=== PATIENT | female | born 1960 | race African-American/Black ===

== ENCOUNTER 2019-06-18 02:45 | Emergency (ER) | payer SELFPAY ==
[2019-06-18 02:55] VITALS: BP 160/80
[2019-06-18] MEDS ORDERED: NAPROXEN 250 MG TABLET PO ONE (06:33)
--- NOTE | 2019-06-18 06:48 | ER Document Report ---
ED General - General Chief Complaint: Low Back Pain Stated Complaint: LOWER BACK PAIN Time Seen by Provider: 06/18/19 06:21 Primary Care Provider: GERRI GUADALUPE MD [Primary Care Provider] - Follow up as needed TRAVEL OUTSIDE OF THE [place] IN LAST 30 DAYS: No - HPI Notes: Patient is a 58-year-old female that presents to the emergency department for chief complaint of low back pain. Patient reports pain in her low back for the last 5 days. She states it is a tight aching sensation. With certain movements the pain radiates down both of her legs and the back. She states the pain is worse with movement and relieved some with rest and heating. She has taken Tylenol, her last dose was at 2 AM. Patient denies any saddle anesthesia, bowel or bladder incontinence, lower extre mity numbness or weakness. She does have a history of back injury 4 years ago which required physical therapy and states intermittently she does get low back pain but this is more severe than usual. She denies any new injury to her back. Past Medical History: Negative Past Surgical History: Negative Social History: Denies drugs alcohol and tobacco Family History: Reviewed and noncontributory for presenting illness Allergies: Reviewed, see documented allergy list. REVIEW OF SYSTEMS: CONSTITUTIONAL : No fever No chills No diaphoresis No recent illness EENT: No vision changes No congestion No sore throat CARDIOVASCULAR: No chest pain No palpitations RESPIRATORY: No shortness of breath No cough No difficulty breathing GASTROINTESTINAL: No abdominal pain No nausea No vomiting No diarrhea GENITOURINARY: No dysuria No hematuria No difficulty urinating MUSCULOSKELETAL: back pain No leg pain No arm pain SKIN: No rashes No lesions LYMPHATIC: No swollen, enlarged glands. NEUROLOGICAL: No lightheadedness No headache No weakness No paresthesias PSYCHIATRIC: No anxiety No depression PHYSICAL EXAMINATION: Vital signs reviewed, nursing noted reviewed. GENERAL: Well-appearing, well-nourished and in no acute distress. HEAD: Atraumatic, normocephalic. EYES: Eyes appear normal, extraocular movements intact, sclera anicteric, conjun ctiva are normal. ENT: nares patent, oropharynx clear without exudates. Moist mucous membranes. NECK: Normal range of motion, supple without lymphadenopathy LUNGS: Breath sounds clear to auscultation bilaterally and equal. No wheezes rales or rhonchi. HEART: Regular rate and rhythm without murmurs ABDOMEN: Soft, nontender, normoactive bowel sounds. No rebound, guarding, or rigidity. No masses appreciated. EXTREMITIES: Nontender, good range of motion, no pitting or edema. Back: No midline thoracic or lumbar tenderness, bilateral lumbar paraspinal muscle tenderness and spasm, normal range of motion of the thoracic and lumbar spine. Negative straight leg raise test NEUROLOGICAL: No focal neurological deficits. Moves all extremities spontaneously Motor and sensory grossly intact on exam. PSYCH: Normal mood, normal affect. SKIN: Warm, Dry, normal turgor, no rashes or lesions noted on exposed skin - Related Data Allergies/Adverse Reactions: No Known Allergies Allergy (Unverified 02/24/12 11:27) Past Medical History - Social History Smoking Status: Never Smoker Frequency of alcohol use: None Family History: Reviewed & Not Pertinent Patient has suicidal ideation: No Patient has homicidal ideation: No - Past Medical History Cardiac Medical History: Denies: Hx Heart Attack, Hx Hypertension Pulmonary Medical History: Denies: Hx Asthma Neurological Medical History: Denies: Hx Cerebrovascular Accident, Hx Seizures Renal/ Medical History: Denies: Hx Peritoneal Dialysis GI Medical History: Denies: Hx Hepatitis, Hx Hiatal Hernia, Hx Ulcer Infectious Medical History: Denies: Hx Hepatitis Past Surgical History: Denies: Hx Hysterectomy, Hx Mastectomy, Hx Open Heart Surgery, Hx Pacemaker Physical Exam - Vital signs Vitals: Temp Pulse Resp BP Pulse Ox 97.5 F 58 L 18 160/80 H 98 06/18/19 02:53 06/18/19 02:53 06/18/19 02:53 06/18/19 02:53 06/18/19 02:53 Course - Re-evaluation Re-evalutation: 06/18/19 06:43 Vitals reviewed. Nursing notes reviewed. Patient did drive herself to the emergency room and will be driving home therefore no medications that could alter her ability to drive will be given. Patient was treated with naproxen for her pain. She has no fever, midline tenderness, saddle anesthesia or lower extremity numbness or weakness to suggest epidural abscess or cauda equina. Patient is otherwise well-appearing. She does have normal range of motion with no trauma history to necessitate further imaging. Patient symptoms are likely more muscular spasm. She will be started on anti-inflammatories and muscle relaxers. She was counseled on return precautions. She is stable at discharge. - Vital Signs Vital signs: Temp Pulse Resp BP Pulse Ox 97.5 F 58 L 18 160/80 H 98 06/18/19 02:53 06/18/19 02:53 06/18/19 02:53 06/18/19 02:53 06/18/19 02:53 Discharge - Discharge Clinical Impression: Low back pain Qualifiers: Chronicity: acute Back pain laterality: bilateral Sciatica presence: without sciatica Qualified Code(s): M54.5 - Low back pain Condition: Stable Disposition: HOME, SELF-CARE Instructions: Low Back Pain ([facility]) Additional Instructions: Please return to the emergency department if you have any worsening, or concern of your symptoms. Please return to the emergency department if you develop fever, lower extremity numbness or weakness, numbness in your groin, or inability to control your bowel and bladder habits. Please follow-up with your primary care physician in 2-3 days and any other recommended physicians. If prescribed, take all medications as directed. If you have any questions or concerns do not hesitate to return the emergency department for evaluation. Prescriptions: Metaxalone [Skelaxin 800 mg Tablet] 800 mg PO TID PRN #30 tablet PRN Reason: back pain Naproxen 500 mg PO BID PRN #30 tablet PRN Reason: Pain Scale Of 1 Referrals: GERRI GUADALUPE MD [Primary Care Provider] - Follow up in 3-5 days
== END 2019-06-18 07:08 | disposition home or self-care (01) ==
LOC: ER 02:45
DX: M54.5 Low back pain (principal); M79.604 Pain in right leg; M79.605 Pain in left leg
CPT/HCPCS: 99283

== ENCOUNTER 2020-04-25 18:14 | Emergency (ER) | payer OTHER ==
[2020-04-25] MEDS ORDERED: KETOROLAC TROMETHAMINE INJ/PF 30 MG/1 ML SDV IV ONE (18:52)
--- NOTE | 2020-04-25 19:16 | ER Document Report ---
ED General Pain - General Chief Complaint: Back Pain Stated Complaint: BACK PAIN Time Seen by Provider: 04/25/20 18:19 Notes: 59 year old female arrives via EMS after 50ug of fentanyl IV. She does feel somewhat better after the meds. She was picking weeds in her yard when her back tightened up and she experienced low back pain right > left. She injured her back in a similar manner about a week ago and went to a local urgent care. She was treated with prednisone and a muscle relaxant and it was slowly improving until today. No fever and no weakness. No DM and no IVDA. TRAVEL OUTSIDE OF THE [place] IN LAST 30 DAYS: No - HPI Onset: This afternoon Onset/Duration: Gradual Quality of pain: Achy, Sharp Severity: Severe Context: denies: New onset Relieved by: Other - meds via EMS - Related Data Allergies/Adverse Reactions: No Known Allergies Allergy (Verified 04/25/20 18:50) Home Medications: Vitamins. Glucosamine Past Medical History - Social History Smoking Status: Never Smoker Chew tobacco use (# tins/day): No Frequency of alcohol use: None Drug Abuse: None Family History: Reviewed & Not Pertinent Patient has homicidal ideation: No - Past Medical History Cardiac Medical History: Denies: Hx Heart Attack, Hx Hypertension Pulmonary Medical History: Denies: Hx Asthma Neurological Medical History: Denies: Hx Cerebrovascular Accident, Hx Seizures Renal/ Medical History: Denies: Hx Peritoneal Dialysis GI Medical History: Denies: Hx Hepatitis, Hx Hiatal Hernia, Hx Ulcer Infectious Medical History: Denies: Hx Hepatitis Past Surgical History: Denies: Hx Hysterectomy, Hx Mastectomy, Hx Open Heart Surgery, Hx Pacemaker Review of Systems - Review of Systems Constitutional: No symptoms reported EENT: No symptoms reported Cardiovascular: No symptoms reported Respiratory: No symptoms reported Gastrointestinal: No symptoms reported Genitourinary: No symptoms reported Female Genitourinary: No symptoms reported Musculoskeletal: See HPI, Back pain. denies: No symptoms reported Skin: No symptoms reported Hematologic/Lymphatic: No symptoms reported Neurological/Psychological: No symptoms reported Physical Exam - Vital signs Vitals: Temp 98.0 F 04/25/20 18:25 Interpretation: Normal - General General appearance: Appears well, Alert - HEENT Head: Normocephalic, Atraumatic Eyes: Normal Pupils: PERRL - Respiratory Respiratory status: No respiratory distress Chest status: Nontender Breath sounds: Normal Chest palpation: Normal - Cardiovascular Rhythm: Regular Heart sounds: Normal auscultation Murmur: No - Abdominal Inspection: Normal Distension: No distension Bowel sounds: Normal Tenderness: Nontender Organomegaly: No organomegaly - Back Back: Normal, Tender - ttp bilateral paraspinal area. No midline pain or deformity.. No: Nontender - Extremities General upper extremity: Normal inspection, Nontender, Normal color, Normal ROM, Normal temperature General lower extremity: Normal inspection, Nontender, Normal color, Normal ROM, Normal temperature, Normal weight bearing. No: Gloria's sign - Neurological Neuro grossly intact: Yes Cognition: Normal Orientation: AAOx4 [place] Coma Scale Eye Opening: Spontaneous Mandy Coma Scale Verbal: Oriented Mandy Coma Scale Motor: Obeys Commands Mandy Coma Scale Total: 15 Speech: Normal Motor strength normal: LUE, RUE, LLE, RLE Sensory: Normal - Psychological Associated symptoms: Normal affect, Normal mood - Skin Skin Temperature: Warm Skin Moisture: Dry Skin Color: Normal Course - Re-evaluation Re-evalutation: 04/25/20 20:04 MDM 59 year old female with no red flags - midline pain, fever, dm, high risk behavior, and back pain. She is here with pain in the low back which is better here after treatment but not gone. Discussed treatment and follow up with her and she expressed understanding. - Vital Signs Vital signs: Temp Pulse Resp BP Pulse Ox 98.0 F 75 20 121/73 94 04/25/20 18:28 04/25/20 18:28 04/25/20 18:28 04/25/20 18:28 04/25/20 18:28 Discharge - Discharge Clinical Impression: Lumbar strain Qualifiers: Encounter type: initial encounter Qualified Code(s): S39.012A - Strain of muscle, fascia and tendon of lower back, initial encounter Condition: Stable Disposition: HOME, SELF-CARE Instructions: Ice Packs ([facility]), Low Back Pain ([facility]), Muscle Strain ([facility]), Pain Medication Injection ([facility]), Warm Packs ([facility]) Additional Instructions: Rest, alternate ice and heat. See your doctor or the a primary doctor in follow up. Please return here for increased pain, weakness or other problems or any other concerns. Stop the muscle relaxant you are taking and begin diazepam. The muscle relaxant has been sent to [facility]. Prescriptions: Diazepam [Valium 5 mg Tablet] 5 mg PO TID #15 tablet Forms: Return to Work
--- NOTE | 2020-04-25 20:01 | RADIOLOGY REPORT (SQ) ---
EXAM DESCRIPTION: L SPINE WHOLE IMAGES COMPLETED DATE/TIME: 04/25/2020 7:51 pm REASON FOR STUDY: back pain COMPARISON: None. NUMBER OF VIEWS: Five views including obliques. TECHNIQUE: AP, lateral, oblique, and sacral radiographic images acquired of the lumbar spine. LIMITATIONS: None. FINDINGS: MINERALIZATION: Normal. SEGMENTATION: Normal. No transitional anatomy. ALIGNMENT: Mild levoscoliosis. VERTEBRAE: Maintained height. No fracture or worrisome bone lesion. DISCS: Mild disc narrowing at L3-4 and L4-5. POSTERIOR ELEMENTS: Mild hypertrophic facet changes from L4-S1. HARDWARE: None in the spine. PARASPINAL SOFT TISSUES: Normal. PELVIS: Intact as visualized. No fractures or worrisome bone lesions. SI joints intact. OTHER: No other significant finding. IMPRESSION: Mild scoliosis. Mild degenerative disc disease. Mild facet arthropathy. TECHNICAL DOCUMENTATION: JOB ID: [id number] [employer]- All Rights Reserved Reading location - IP/workstation name: [email or web address]
[2020-04-25 20:28] VITALS: BP 130/73
== END 2020-04-25 20:29 | disposition home or self-care (01) ==
LOC: ER 18:14
DX: S39.012A Strain of muscle, fascia and tendon of lower back, initial encounter (principal); M54.9 Dorsalgia, unspecified; X50.3XXA Overexertion from repetitive movements, initial encounter; Y93.H2 Activity, gardening and landscaping; Z88.8 Allergy status to other drugs, medicaments and biological substances
CPT/HCPCS: 99283; 96374; 72110; J1885